=== PATIENT | male | born 1995 | race Caucasian/White ===

== ENCOUNTER 2018-01-01 18:11 | Emergency (ER) | payer SELFPAY ==
[~2018-01-01] VITALS: Ht 170.2 cm; Wt 68.0 kg
[2018-01-01 22:48] VITALS: BP 145/87
== END 2018-01-01 22:49 | disposition home or self-care (01) ==
LOC: ER 18:11
DX: S69.81XA Other specified injuries of right wrist, hand and finger(s), initial encounter (principal); V03.99XA Pedestrian with other conveyance injured in collision with car, pick-up truck or van, unspecified whether traffic or nontraffic accident, initial encounter; Y93.01 Activity, walking, marching and hiking; Y92.410 Unspecified street and highway as the place of occurrence of the external cause
CPT/HCPCS: 29125; 73110; 99284

== ENCOUNTER 2018-02-13 19:57 | Emergency (ER) | payer SELFPAY ==
[~2018-02-13] VITALS: Ht 170.2 cm; Wt 71.0 kg
[2018-02-14 01:30] VITALS: BP 135/76
== END 2018-02-14 01:33 | disposition home or self-care (01) ==
LOC: ER 21:43
DX: S63.501A Unspecified sprain of right wrist, initial encounter (principal); W18.39XA Other fall on same level, initial encounter; Y93.89 Activity, other specified; Y92.89 Other specified places as the place of occurrence of the external cause; Y99.8 Other external cause status; S63.8X1A Sprain of other part of right wrist and hand, initial encounter
CPT/HCPCS: 73110; 73130; 99284